=== PATIENT | male | born 1975 | race African-American/Black ===

== ENCOUNTER 2016-10-09 09:56 | Emergency (ER) | payer OTHER ==
[2016-10-09] MEDS ORDERED: Ibuprofen 800 MG TAB ONE (10:16)
== END 2016-10-09 10:53 | disposition home or self-care (01) ==
LOC: NAV ERS 09:56
DX: J02.9 Acute pharyngitis, unspecified (principal); K62.89 Other specified diseases of anus and rectum; F32.9 Major depressive disorder, single episode, unspecified; Z79.899 Other long term (current) drug therapy
CPT/HCPCS: 87081; 87430; 99283

== ENCOUNTER 2016-11-16 23:12 | Emergency (ER) | payer OTHER ==
[2016-11-16] MEDS ORDERED: Ketorolac Tromethamine 30 MG/ML VIAL ONE (23:58)
[2016-11-17] MEDS ORDERED: Benzonatate 100 MG CAP ONE (00:06)
== END 2016-11-17 00:17 | disposition home or self-care (01) ==
LOC: NAV ERS 23:12
DX: K21.9 Gastro-esophageal reflux disease without esophagitis (principal); F32.9 Major depressive disorder, single episode, unspecified
CPT/HCPCS: 93005; 96372; J1885

== ENCOUNTER 2017-02-07 21:08 | Emergency (ER) | payer OTHER ==
[2017-02-07] MEDS ORDERED: Ketorolac Tromethamine 30 MG/ML VIAL ONE (21:35)
== END 2017-02-07 22:04 | disposition home or self-care (01) ==
LOC: NAV ERS 21:08
DX: J02.9 Acute pharyngitis, unspecified (principal); F32.9 Major depressive disorder, single episode, unspecified; Z79.899 Other long term (current) drug therapy
CPT/HCPCS: 87081; 87430; 96372; J1885

== ENCOUNTER 2017-04-11 15:30 | Emergency (ER) | payer OTHER ==
[2017-04-11] MEDS ORDERED: Ketorolac Tromethamine 60 MG/2 ML VIAL ONE (15:58)
[2017-04-11] MEDS ORDERED: Cyclobenzaprine 10 MG TAB ONE (16:00)
== END 2017-04-11 16:15 | disposition home or self-care (01) ==
LOC: NAV ERS 15:30
DX: M54.16 Radiculopathy, lumbar region (principal); F32.9 Major depressive disorder, single episode, unspecified
CPT/HCPCS: 96372; J1885

== ENCOUNTER 2017-05-22 11:33 | Emergency (ER) | payer OTHER ==
[2017-05-22] MEDS ORDERED: Ibuprofen 800 MG TAB ONE (12:20)
== END 2017-05-22 12:26 | disposition home or self-care (01) ==
LOC: NAV ERS 11:33
DX: J06.9 Acute upper respiratory infection, unspecified (principal); F32.9 Major depressive disorder, single episode, unspecified; Z79.899 Other long term (current) drug therapy
CPT/HCPCS: 99283

== ENCOUNTER 2017-05-23 21:10 | Emergency (ER) | payer OTHER | END 2017-05-23 21:33 | disposition home or self-care (01) | LOC: NAV ERS 21:10 | DX: J06.9 Acute upper respiratory infection, unspecified (principal); F32.9 Major depressive disorder, single episode, unspecified; Z79.899 Other long term (current) drug therapy | CPT/HCPCS: 99283 ==

== ENCOUNTER 2017-06-03 12:07 | Emergency (ER) | payer OTHER | END 2017-06-03 12:46 | disposition home or self-care (01) | LOC: NAV ERS 12:07 | DX: L23.9 Allergic contact dermatitis, unspecified cause (principal); F32.9 Major depressive disorder, single episode, unspecified; Z79.899 Other long term (current) drug therapy | CPT/HCPCS: 99282 ==

== ENCOUNTER 2017-06-18 14:11 | Emergency (ER) | payer OTHER | END 2017-06-18 15:09 | disposition home or self-care (01) | LOC: NAV ERS 14:11 | DX: B34.9 Viral infection, unspecified (principal); F32.9 Major depressive disorder, single episode, unspecified; Z79.899 Other long term (current) drug therapy | CPT/HCPCS: 87804; 99284 ==

== ENCOUNTER 2017-07-01 10:32 | Emergency (ER) | payer OTHER ==
[2017-07-01] MEDS ORDERED: Ketorolac Tromethamine 30 MG/ML VIAL ONE (10:45)
== END 2017-07-01 11:09 | disposition home or self-care (01) ==
LOC: NAV ERS 10:32
DX: B35.4 Tinea corporis (principal); F32.9 Major depressive disorder, single episode, unspecified; Z79.899 Other long term (current) drug therapy
CPT/HCPCS: 99282; J1885

== ENCOUNTER 2017-07-18 11:29 | Emergency (ER) | payer OTHER ==
[2017-07-18] MEDS ORDERED: Bacitracin Zinc 1 Packet ONE (11:56)
== END 2017-07-18 12:15 | disposition home or self-care (01) ==
LOC: NAV ERS 11:29
DX: S51.812A Laceration without foreign body of left forearm, initial encounter (principal); F32.9 Major depressive disorder, single episode, unspecified; Z79.899 Other long term (current) drug therapy; W26.8XXA Contact with other sharp object(s), not elsewhere classified, initial encounter
CPT/HCPCS: 12002

== ENCOUNTER 2017-07-27 11:28 | Emergency (ER) | payer OTHER | END 2017-07-27 12:07 | disposition home or self-care (01) | LOC: NAV ERS 11:28 | DX: S51.812D Laceration without foreign body of left forearm, subsequent encounter (principal); F32.9 Major depressive disorder, single episode, unspecified; Z79.899 Other long term (current) drug therapy ==

== ENCOUNTER 2017-08-30 08:22 | Emergency (ER) | payer OTHER ==
[2017-08-30] MEDS ORDERED: Ketorolac Tromethamine 30 MG/ML VIAL ONE (09:34)
--- NOTE | 2017-08-30 10:18 | RAD ---
LEFT SHOULDER 3 VIEWS: Date: 08/30/17 HISTORY: Left shoulder pain. FINDINGS/IMPRESSION: There are degenerative changes in the acromioclavicular joint. No fracture, dislocation, or bony dest ruction is identified. POS: C
== END 2017-08-30 10:21 | disposition home or self-care (01) ==
LOC: NAV ERS 08:22
DX: S46.912A Strain of unspecified muscle, fascia and tendon at shoulder and upper arm level, left arm, initial encounter (principal); F32.9 Major depressive disorder, single episode, unspecified; X50.1XXA Overexertion from prolonged static or awkward postures, initial encounter
CPT/HCPCS: 96372; J1885

== ENCOUNTER 2017-09-06 15:06 | Emergency (ER) | payer OTHER | END 2017-09-06 16:10 | disposition home or self-care (01) | LOC: NAV ERS 15:06 | DX: B35.4 Tinea corporis (principal); F32.9 Major depressive disorder, single episode, unspecified; Z79.899 Other long term (current) drug therapy | CPT/HCPCS: 99282 ==